=== PATIENT | female | born 1995 | race African-American/Black ===

== ENCOUNTER 2017-01-04 06:41 | Emergency (ER) | payer BC, MEDICAID ==
[~2017-01-04] VITALS: Ht 170.2 cm; Wt 92.0 kg
[2017-01-04 06:44] VITALS: BP 123/77; PULSE 83; RESP 16; TEMP 98.2; O2SAT 100
--- NOTE | 2017-01-04 07:42 | PD ---
HPI Chief Complaint: Related Problem Time Seen by Provider: 07:23 Travel History International Travel<30 days: No Contact w/Intl Traveler<30days: No Traveled to known affect area: No History of Present Illness HPI 21-year-old female complains of epigastric abdominal pain and vaginal bleeding. Patient is 1 para 0 AB 0. Patient states that her blood type is O-. Patient states that she woke up this morning with transient mild epigastric pain. Patient states that the epigastric pain resolved completely. Patient denies any abdominal pain now. Patient states that she went to the bathroom and noticed some blood on the tissue this morning. Patient denies any low abdominal pain or pelvic pain. Patient denies dysuria or frequency. Patient denies any vaginal discharge. Patient denies any back pain fever chills. Patient states that she she is 8 week . Patient is visiting [facility]. Patient does not have local OB in town. PFSH Past Medical History Medical History: Denies Significant Hx Diminished Hearing: No Immunizations Current: Yes Tetanus Vaccination: Unknown Influenza Vaccination: No ?: LMP: 11/08/17 Past Surgical History Surgical History: No Previous Surgery Social History Alcohol Use: No Tobacco Use: No Substance Use: No Allergies-Medications (Allergen,Severity, Reaction): Coded Allergies: No Known Allergies (Unverified , 01/04/17) Reported Meds & Prescriptions Reported Meds & Active Scripts Active No Active Prescriptions or Reported Medications Review of Systems General / Constitutional: No: Fever Eyes: No: Visual changes HENT: No: Headaches Cardiovascular: No: Chest Pain or Discomfort Respiratory: No: Shortness of Breath Gastrointestinal: Positive: Abdominal Pain Genitourinary: Positive: Vaginal Bleeding, No: Dysuria Musculoskeletal: No: Pain Skin: No Rash Neurologic: No: Weakness Psychiatric: No: Depression Endocrine: No: Polydipsia Hematologic/Lymphatic: No: Easy Bruising Physical Exam Narrative GENERAL: Well-nourished, well-developed patient. SKIN: Warm and dry. HEAD: Normocephalic. EYES: No scleral icterus. No injection or drainage. NECK: Supple, trachea midline. No JVD or lymphadenopathy. CARDIOVASCULAR: Regular rate and rhythm without murmurs, gallops, or rubs. RESPIRATORY: Breath sounds equal bilaterally. No accessory muscle use. GASTROINTESTINAL: Abdomen soft, non-tender, nondistended. MUSCULOSKELETAL: No cyanosis, or edema. BACK: Nontender without obvious deformity. No CVA tenderness. CONSULTING PROJECT DIRECTOR exam: The cervix is long and thick and closed. Uterus is enlarged and nontender on palpation. No adnexal mass or tenderness. No fresh blood in the vaginal vault. Data Data Last Documented VS Vital Signs Date Time Temp Pulse Resp B/P Pulse Ox O2 Delivery O2 Flow Rate FiO2 01/04/17 06:46 16 01/04/17 06:44 98.2 83 123/77 100 Room Air Orders Complete Rh (01/04/17 07:33) Urinalysis - C+S If Indicated (01/04/17 07:33) Labs Laboratory Tests Test 01/04/17 07:35 Urine Color YELLOW Urine Turbidity HAZY Urine pH 6.0 Urine Specific [place] 1.025 Urine Protein TRACE mg/dL Urine Glucose (UA) NEG mg/dL Urine Ketones NEG mg/dL Urine Occult Blood SMALL Urine Nitrite NEG Urine Bilirubin NEG Urine Urobilinogen 4.0 MG/DL Urine Leukocyte Esterase MOD Urine RBC 1 /hpf Urine WBC 1 /hpf Urine Squamous Epithelial 4 /hpf Cells Urine Calcium Oxalate Crystals OCC /hpf Urine Mucus FEW /lpf Microscopic Urinalysis Comment CULT NOT INDICATED Blood Type B POSITIVE Rho(D) Type POSITIVE MDM Medical Decision Making Medical Screen Exam Complete: Yes Emergency Medical Condition: Yes Differential Diagnosis Differential diagnosis including cervicitis, threatened AB, ectopic . Narrative Course 21-year-old female with transient epigastric pain, vaginal spotting. Patient does not have any abdominal pain, pelvic pain, active vaginal bleeding now. Patient's blood type is B+. Patient does not need RhoGAM. Procedures Procedure Narrative Emergency Department Pelvic ultrasound was performed with patient consent. The curvilinear probe was used in the transverse and sagittal views within the suprapubic region revealing single intrauterine . heart rate was 140. Diagnosis Primary Impression: Vaginal bleeding in patient at less than 20 weeks gestation Patient Instructions: General Instructions Additional Instructions: Continue with vitamins. Advised fluid and bedrest. Follow-up with personal OB physician. Return if increased abdominal pain, pelvic pain, vaginal bleeding. Med/Other Pt SpecificInfo: No Meds Exist/No RX given Scripts No Active Prescriptions or Reported Meds Disposition: DISCHARGE HOME Condition: Stable Dago Robertson MD Jan 04, 2017 07:42
[2017-01-04 07:55] LABS: BLOOD, URINE SMALL (NEG); CALCIUM OXALATE CRYSTALS,URINE OCC /hpf; COMMENT (UR) CULT NOT INDICATED; CULTURE IF INDICATED CULT NOT INDICATED; GLUCOSE,URINE NEG (NEG); KETONE, URINE NEG (NEG); MUCUS URINE FEW /lpf (OCC); NITRITE,URINE NEG (NEG); SQUAMOUS EPITHELIAL CELL URINE 4 /hpf (0-5); URINE COLOR YELLOW (YELLW/STRAW)
[2017-01-04 10:15] VITALS: BP 121/73
== END 2017-01-04 10:15 | disposition home or self-care (01) ==
LOC: NEPC 06:41
DX: O20.9 Hemorrhage in early pregnancy, unspecified (principal); Z3A.08 8 weeks gestation of pregnancy
CPT/HCPCS: 81001; 86901; 99284

== ENCOUNTER 2017-02-15 11:58 | Emergency (ER) | payer BC, OTHER ==
[~2017-02-15] VITALS: Ht 170.2 cm; Wt 100.0 kg
[2017-02-15 12:03] VITALS: BP 116/77; PULSE 107; RESP 16; TEMP 98.2; O2SAT 99
[2017-02-15 15:50] VITALS: BP 137/82; PULSE 90; RESP 18; O2SAT 100
[2017-02-15] MEDS ORDERED: SODIUM CHLOR 0.9% 1000 ML INJ 1,000 ML IV ONE (16:00)
--- NOTE | 2017-02-15 16:04 | PD ---
HPI Chief Complaint: Related Problem Time Seen by Provider: 15:51 Travel History International Travel<30 days: No Contact w/Intl Traveler<30days: No Traveled to known affect area: No History of Present Illness HPI This is a 21-year-old Ab0 who is at 14 weeks and 6 days, presents today with complaints of blood streaked emesis and vaginal spotting times one episode today. The patient states she felt nauseous and had the urge to vomit. She states that shortly thereafter she went. Pain is on and noticed her blood in her vaginal area. Patient denies any abdominal pain, she denies any fevers chills, she denies any dysuria, urgency, frequency. The patient is visiting from [place]. She was seen here in December for similar issues. At that time they found no acute findings. The patient is Rh+ from blood work from December. PFSH Past Medical History Medical History: Denies Significant Hx Diminished Hearing: No Immunizations Current: Yes Tetanus Vaccination: Unknown Influenza Vaccination: No ?: LMP: 11/08/16 : 1 Para: 0 Miscarriage: 0 : 0 Past Surgical History Surgical History: No Previous Surgery Social History Alcohol Use: No Tobacco Use: No Substance Use: No Allergies-Medications (Allergen,Severity, Reaction): Coded Allergies: [place] (Verified Allergy, Severe, "I STOP BREATHING", 02/15/17) Penicillin (Verified Allergy, Severe, THROAT SWELLING, 02/15/17) Reported Meds & Prescriptions Reported Meds & Active Scripts Active Macrobid (Nitrofurantoin Monoh/Nitrofur Macro) 100 Mg Cap 100 Mg PO BID Review of Systems Except as stated in HPI: all other systems reviewed are Neg General / Constitutional: No: Fever, Chills HENT: No: Headaches, Lightheadedness Cardiovascular: No: Chest Pain or Discomfort, Palpitations Respiratory: No: Cough, Shortness of Breath Gastrointestinal: Positive: Nausea, Vomiting (times one episode with blood streaked emesis.) Genitourinary: Positive: Vaginal Bleeding (vaginal spotting), No: Frequency, Dysuria, Pelvic Pain Musculoskeletal: No: Weakness Neurologic: No: Weakness, Dizziness, Headache Physical Exam Narrative GENERAL: Well-nourished, well-developed patient. SKIN: Focused skin assessment warm/dry. HEAD: Normocephalic/atraumatic. EYES: No injection or drainage. NECK: Supple, trachea midline. CARDIOVASCULAR: Regular rate and rhythm without murmurs, gallops, or rubs. RESPIRATORY: Breath sounds equal bilaterally. No accessory muscle use. GASTROINTESTINAL: Abdomen soft, non-tender, nondistended. GENITOURINARY: Normal external genitalia without lesions or erythema. Vaginal vault without blood or drainage. Cervical os was closed without drainage. BACK: Nontender without obvious deformity. No CVA tenderness. NEUROLOGICAL: Awake and alert. Cranial nerves II through XII intact. Motor grossly within normal limits. Five out of 5 muscle strength in all muscle groups. Normal speech. Data Data Last Documented VS Vital Signs Date Time Temp Pulse Resp B/P Pulse Ox O2 Delivery O2 Flow Rate FiO2 02/15/17 15:50 90 18 02/15/17 15:50 137/82 100 Room Air 02/15/17 12:03 98.2 Orders Complete Blood Count With Diff (02/15/17 15:57) Iv Access Insert/Monitor (02/15/17 15:57) Heart Tones (02/15/17 15:57) Sodium Chlor 0.9% 1000 Ml Inj (Ns 1000 M (02/15/17 16:00) Urinalysis - C+S If Indicated (02/15/17 16:09) Urine Culture (02/15/17 16:25) Labs Laboratory Tests Test 02/15/17 16:25 White Blood Count 10.1 TH/MM3 Red Blood Count 4.15 MIL/MM3 Hemoglobin 12.5 GM/DL Hematocrit 36.8 % Mean Corpuscular Volume 88.8 FL Mean Corpuscular Hemoglobin 30.2 PG Mean Corpuscular Hemoglobin 34.0 % Concent Red Cell Distribution Width 13.5 % Platelet Count 213 TH/MM3 Mean Platelet Volume 9.9 FL Neutrophils (%) (Auto) 74.6 % Lymphocytes (%) (Auto) 18.1 % Monocytes (%) (Auto) 6.0 % Eosinophils (%) (Auto) 1.0 % Basophils (%) (Auto) 0.3 % Neutrophils # (Auto) 7.5 TH/MM3 Lymphocytes # (Auto) 1.8 TH/MM3 Monocytes # (Auto) 0.6 TH/MM3 Eosinophils # (Auto) 0.1 TH/MM3 Basophils # (Auto) 0.0 TH/MM3 CBC Comment DIFF FINAL Differential Comment Urine Color YELLOW Urine Turbidity CLOUDY Urine pH 6.0 Urine Specific [place] 1.024 Urine Protein 30 mg/dL Urine Glucose (UA) NEG mg/dL Urine Ketones 10 mg/dL Urine Occult Blood MOD Urine Nitrite NEG Urine Bilirubin NEG Urine Urobilinogen LESS THAN 2.0 MG/DL Urine Leukocyte Esterase LARGE Urine RBC 157 /hpf Urine WBC /hpf Urine WBC Clumps RARE Urine Squamous Epithelial 50 /hpf Cells Urine Bacteria MANY /hpf Urine Mucus FEW /lpf Microscopic Urinalysis Comment CULTURE INDICATED MDM Medical Decision Making Medical Screen Exam Complete: Yes Emergency Medical Condition: Yes Differential Diagnosis Threatened versus complete versus incomplete AB versus cystitis Narrative Course 21-year-old AB 0, who is at 14 weeks and 6 days gestation, presents today with complaints of vaginal spotting. Patient also had an episode of emesis that was blood streaked. The patient's blood counts within normal limits. Urinalysis shows evidence of a urinary tract infection. Bimanual pelvic exam showed cervical os closed there is no blood in the vault. heart tones were measured at 160s. Portable bedside ultrasound showed good movement with a intrauterine consistent with her dates. She'll be discharged with a prescription for Macrobid. She is instructed to take Biaxin as prescribed. She is also instructed to drink plenty of fluids and take her vitamins. Diagnosis Primary Impression: Cystitis Additional Impression: reported vaginal bleeding in less than 20 weeks Additional Instructions: Follow up with OB physician in one week for repeat urinalysis. Return if feeling worse. Med/Other Pt SpecificInfo: Prescription(s) given Scripts Nitrofurantoin Monohydrate Macrocrystals (Macrobid)100 Mg [id number] Mg PO BID #14 CAP Ref 0 Prov:Robi Phelan MD 02/15/17 Disposition: DISCHARGE HOME Condition: Stable Robi Phelan MD Feb 15, 2017 16:04
[2017-02-15 16:36] LABS: AUTOMATED NEUTROPHIL # 7.5 TH/MM3 (1.8-7.7); BASOPHIL % 0.3 % (0.0-2.0); EOSINOPHIL # 0.1 TH/MM3 (0-0.4); HEMATOCRIT 36.8 % (35.0-46.0); HEMO FLAGS DIFF FINAL; LYMPH % 18.1 % (9.0-44.0); LYMPHOCYTE # 1.8 TH/MM3 (1.0-4.8); MEAN CELL VOLUME 88.8 FL (80.0-100.0); MEAN CORPUSCULAR HEMOGLOBIN 30.2 PG (27.0-34.0); NEUT % 74.6 % (16.0-70.0); PLATELET COUNT 213 TH/MM3 (150-450); RED BLOOD COUNT 4.15 MIL/MM3 (4.00-5.30); RED CELL DISTRIBUTION WIDTH 13.5 % (11.6-17.2); WHITE BLOOD COUNT 10.1 TH/MM3 (4.0-11.0)
[2017-02-15 16:40] LABS: BACTERIA, URINE MANY /hpf; BLOOD, URINE MOD (NEG); COMMENT (UR) CULTURE INDICATED; CULTURE IF INDICATED CULTURE INDICATED; GLUCOSE,URINE NEG (NEG); KETONE, URINE 10 mg/dL (NEG); MUCUS URINE FEW /lpf (OCC); NITRITE,URINE NEG (NEG); SQUAMOUS EPITHELIAL CELL URINE 50 /hpf (0-5); URINE COLOR YELLOW (YELLW/STRAW)
[2017-02-15] MEDS ORDERED: MACR100C2 PO (17:07)
== END 2017-02-15 18:33 | disposition home or self-care (01) ==
LOC: NEPE 11:58
DX: O23.12 Infections of bladder in pregnancy, second trimester (principal); B96.89 Other specified bacterial agents as the cause of diseases classified elsewhere; Z3A.14 14 weeks gestation of pregnancy
CPT/HCPCS: 81001; 85025; 87086; 96360; 99284; J7030